=== PATIENT | female | born 1945 | race Caucasian/White ===

== ENCOUNTER → 2017-01-27 | Day surgery (SDC) | payer MEDICARE ==
[~2017-01-27] MED LIST: ACET25TA2 PO; ATEN25TA PO; ESTR1TAB PO; FLUT50SP EACH NARE; FURO1TAB62 PO; FURO20TA PO; IBUP-232 PO; MONT10TA2 PO; OXYB5TAB PO; PROPOFOL 200 MG/20 ML AMP IV ONE; ROSU10 PO; SODIUM CHLORIDE 0.9% 10 ML VIAL ONE; ZOLP5TAB3 PO
--- NOTE | 2017-01-29 10:49 | M6 ---
cc: DIONE GONSALEZ M.D. DATE: 01/27/2017 1945 PROCEDURE Fluoroscopically guided injection neurolytic substance bilateral sacroiliac joints (3% phenol). History and physical was completed and signed. Consent was signed. Procedure site was marked. Medications were listed and reconciled. Pain score was recorded. Allergies were noted. Time out was taken. Fluoroscopy time was recorded where applicable. Sedation was administered or directed by Dr. Gonsalez. The patient was given oxygen. The patient was monitored by a registered nurse. Total procedure time was greater than 15 minutes. IV was started, blood pressure cuff, pulse oximeter and EKG were applied. The patient was placed in the prone position on a Chivo table, sedated with small amounts of propofol titrated to effect. Vital signs were monitored and remained stable throughout the procedure. Sacral area was prepped with alcohol. No Betadine was used since she is allergic. Fluoroscopy was used shooting from medial to lateral to clearly visualize the posterior joint line of the bilateral sacroiliac joints. Separate sterile 5-inch 22-gauge spinal needles were advanced into these joints under fluoroscopic guidance. There was negative aspiration for blood or any other type of fluid. At each location the patient was given 1-1/2 mL of 3% phenol. Following this the patient was taken to the recovery room with stable vital signs, neurologically intact. She will be evaluated immediately and with followup to determine if she has a subjective decrease in her usual pain and a corresponding objective increase in her functional capabilities. W. MD RAMY Diaz/ARASH /10:37 AM /10:40 AM
== END | disposition home or self-care (01) ==
LOC: PHSDC 08:45
PROVIDERS: ATTEND Pain Medicine Interventional Pain Medicine
DX: M54.5 Low back pain (principal)
CPT/HCPCS: 64640; 99152

== ENCOUNTER → 2017-02-03 | Day surgery (SDC) | payer MEDICARE ==
[~2017-02-03] MED LIST changes: -FLUT50SP EACH NARE; -FURO1TAB62 PO; -MONT10TA2 PO; -OXYB5TAB PO; -ZOLP5TAB3 PO
--- NOTE | 2017-02-03 15:48 | M6 ---
cc: DIONE GONSALEZ M.D. DATE 02/03/2017 DATE OF 1945 PROCEDURE Fluoroscopically guided injection neurolytic substance bilateral sacroiliac joints (3% phenol). History and physical was completed and signed. Consent was signed. Procedure site was marked. Medications were listed and reconciled. Pain score was recorded. Allergies were noted. Time out was taken. Fluoroscopy time was recorded where applicable. Sedation was administered or directed by Dr. Gonsalez. The patient was given oxygen. The patient was monitored by a registered nurse. Total procedure time was greater than 15 minutes. PROCEDURE NOTE IV was started. Blood pressure cuff, pulse oximeter and EKG were applied. The patient was placed in the prone position on a Chivo table, sedated with small amounts of propofol titrated to effect. Vital signs were monitored and remained stable throughout the procedure. Fluoroscopy was used to visualize the bilateral sacroiliac joints. Separate sterile 5-1/2-inch, 22-gauge spinal needles were advanced into each joint under fluoroscopic guidance. There was negative aspiration for blood or any other type of fluid and at each location the patient was given 1.5 mL of 3% phenol. Following the procedure the patient was taken to the recovery room stable vital signs, neurologically intact. W. MD RAMY Diaz/SSB /8:49 AM /3:42 PM
== END | disposition home or self-care (01) ==
LOC: PHSDC 07:17
PROVIDERS: ATTEND Pain Medicine Interventional Pain Medicine
DX: M54.5 Low back pain (principal)
CPT/HCPCS: 64640; 99152

== ENCOUNTER → 2017-11-25 | Day surgery (SDC) | payer MEDICARE ==
[~2017-11-25] MED LIST changes: -ACET25TA2 PO; +DIPH25TA31 PO; +LIDOCAINE HCL 1% 30 ML VIAL INFIL ONE; +methylPREDNISolone ACETATE 80 MG/ML VIAL ONE
--- NOTE | 2017-11-25 10:33 | M6 ---
cc: Daron Gonsalez MD DATE: 11/25/2017 PROCEDURE: Fluoroscopically-guided L5-S1 interlaminar epidural steroid injection. History and physical was completed and signed. Consent was signed. Procedure site was marked. Medications were listed and reconciled. Pain score was recorded. Allergies were noted. Time out was taken. Fluoroscopy time was recorded where applicable. Sedation was administered or directed by Dr. Gonsalez. The patient was given oxygen. The patient was monitored by a registered nurse. Total procedure time was greater than 15 minutes. PROCEDURE NOTE: IV was started. Blood pressure cuff, pulse oximeter and EKG were applied. The patient was placed in the prone position on a Chivo table, sedated with small amounts of propofol titrated to effect. Vital signs were monitored and remained stable throughout the procedure. The lumbar area was prepped with alcohol and 10% Betadine solution and draped with sterile drapes. Fluoroscopy was used to visualize the L5-S1 interlaminar space. The skin was infiltrated with 1% Xylocaine using a 27-gauge needle. Then a 3-1/2 inch, 18-gauge Pulido needle was advanced using fluoroscopic guidance and the loss of resistance technique into the epidural space at L5-S1 slightly to the right of the midline. There was negative aspiration for blood or any other type of fluid and the patient was given 10 mL of 0.5% Xylocaine and 80 mg of Depo-Medrol. Following this, the patient was taken to the recovery room with stable vital signs neurologically intact. MD RAMY Helms/ROLANDO , 10:24 AM , 10:32 AM
== END | disposition home or self-care (01) ==
LOC: PHSDC 09:07
PROVIDERS: ATTEND Pain Medicine Interventional Pain Medicine
DX: M54.5 Low back pain (principal); M79.661 Pain in right lower leg
CPT/HCPCS: 62323; 99152; J1040